=== PATIENT | male | born 1970 | race Caucasian/White ===

== ENCOUNTER → 2018-05-30 | Outpatient (CLI) | payer BC ==
[~2018-05-30] MED LIST: 00186-0370-20 IH; CYMBALTA 30MG30 MG PO; DEPO-TESTOS100 MG/ML IJ; GLUCOPHAGE500 MG/TAB PO; HCTZ12.5TAB PO; LIPITOR 10MG10 MG PO; NEURONTIN600 MG/TAB PO; NORCO 325 MG-7.1 TAB PO; PHENERGAN 25 TA25 MG PO; TENORMIN 2525 MG/TAB PO; ZESTRIL 10MG10 MG PO; ZOLOFT 50MG50 MG PO
== END ==
LOC: ZCOL.LAB 15:57
DX: Z01.89 Encounter for other specified special examinations (principal)

== ENCOUNTER 2020-10-17 08:51 | Emergency (ER) | payer BC ==
[~2020-10-17] VITALS: Ht 182.9 cm; Wt 98.6 kg
[2020-10-17 08:58] VITALS: TEMP 97.4
[2020-10-17] MEDS ORDERED: CEPHALEXIN500 M1 PO (10:08)
[2020-10-17 10:50] VITALS: BP 134/70; PULSE 71
== END 2020-10-17 10:50 | disposition home or self-care (01) ==
LOC: COL.ER 08:51
DX: L03.115 Cellulitis of right lower limb (principal); I80.9 Phlebitis and thrombophlebitis of unspecified site; Z87.891 Personal history of nicotine dependence